=== PATIENT | female | born 1995 | race African-American/Black ===

== ENCOUNTER 2016-07-08 20:37 | Emergency (ER) | payer OTHER ==
[~2016-07-08] VITALS: Ht 170.2 cm; Wt 118.2 kg
[2016-07-08 20:40] VITALS: TEMP 36.7; Ht 170.2 cm; Wt 118.2 kg
--- NOTE | 2016-07-08 20:53 | EMERGENCY ROOM VISIT NOTE ---
ED Visit Note First contact with patient: 20:42 Chief Complaint: "Cut right index finger". History of Present Illness: This patient is a 21-year-old female who presents to the Emergency Department via private vehicle for evaluation of their right index finger laceration. Patient sustained the laceration while working earlier today, 20 minutes prior to arrival at the [facility]. Patient is a [employer] student. She notes that she was cleaning dishes in the sink and accidentally cut her right index finger on a knife that was in the water. She denies any pain. They report a moderate amount of bleeding initially. They deny any numbness or tingling into the distal extremity. They report no decreased range of motion of the affected digit. Patient's Tetanus status is currently up -to-date. Medications: As noted below Allergies: No known allergies PMH: No pertinent past medical history SHx: Patient is a [employer] student and currently employed on campus in the [employer]. ROS: All pertinent positive and negative review of systems are appropriately documented in the History of Present Illness. Physical Exam: VITAL SIGNS - Vital signs and nursing notes were reviewed. GENERAL -21-year-old female appearing her stated age who is in no acute distress. Communicates well with provider and answers questions appropriately. SKIN - There is a 1.5 cm long laceration in the shape of the C noted on the medial aspect of the distal right second digit. The edges gape apart with traction. No foreign bodies appreciated. Upon further examination there are no deep structures including vessel, tendon, or bony structures appreciated. This appears to be a flap/fillet -like laceration that will not require suturing but is best approximated with Dermabond. There is no active bleeding noted. MUSCULOSKELETAL - Laceration as described above. +5/5 strength appreciated of the affected digit. Full range of motion of the affected digit. NEUROLOGIC - Spinothalamic tract was found to be intact with ability to discriminate sharp versus dull sensation. No sensory defects of the dorsal column were appreciated utilizing light touch for evaluation. VASCULAR - Capillary refill was brisk. ED Course: Patient was seen and evaluated by myself. Risks and benefits of performing primary wound closure versus no repair were discussed with the patient who verbalizes understanding. Verbal consent was obtained prior to performing the procedure. patient did not want any localized anesthetic. The wound was cleansed and prepped in the typical sterile fashion utilizing normal saline and Betadine. The wound was sterilely draped. Once proper anesthetization was established, the wound was further examined and demonstrated a superficial laceration The wound was copiously irrigated with normal saline and Betadine. The wound was closed Dermabond with the wound edges being well approximated. Patient tolerated the procedure well. No complications were met. A metal splint was applied to the finger for comfort. Patient educated on worrisome symptoms for return visit to the Emergency Department. She is to follow up with workman's compensation regarding today's visit. Patient discharged to home in good condition. In the evaluation and treatment of this patient the following differential diagnoses were entertained: Laceration, among others. Current/Historical Medications Scheduled Control Pills ( Control Pills), 1 TAB PO DAILY Methylphenidate Hcl (Concerta), 72 MG PO QAM Allergies Coded Allergies: No Known Allergies (Unverified , 07/08/16) Vital Signs Date Time Temp Pulse Resp B/P Pulse Ox O2 Delivery O2 Flow Rate FiO2 07/08/16 22:06 85 18 145/93 99 07/08/16 20:40 36.7 82 18 160/105 99 Room Air Departure Information Impression Primary Impression: Laceration Dispostion Home / Self-Care Condition GOOD Patient Instructions My [facility] Additional Instructions Discharge Instructions: You have received Dermabond glue on your finger. Please wear the splint for comfort until the glue dissolves. Please keep the wound dry for the next week. Please do not submerge your hand in water. Please follow-up with your approved Workmen's Compensation individuals for further evaluation and management. Look for signs of infection of the wound including: increased pain, swelling, foul discharge, streaking, or increased temperature. If any of these are noticed you should return to the Emergency Department for further assessment and treatment. As with any laceration you may have received nerve damage to the surrounding tissues. This damage may or may not be permanent. You should keep the area covered with sunscreen for the first 6 months to 1 year when at risk for exposure to help minimize scarring. You can also use scar reducing creams or Vitamin E oil to help minimize scarring. For pain control, you can use the following [id number]-yozszls medicines (if >12 yo): - Regular strength (325mg/tab) Tylenol (acetaminophen) 2 tabs every 4-6 hours as needed. Do not exceed 12 tablets in a 24 hour period. Avoid taking more than 4 grams (4000 mg) of Tylenol per day. This includes any other sources of acetaminophen you may take on a regular basis. - Regular strength (200 mg/tab) Advil (ibuprofen) 1-2 tabs every 4-6 hours as needed. Do not exceed a dose of 3200 mg per day. Return to the emergency department if your symptoms worsen despite treatment course outlined above. Please return to emergency department with any new/concerning symptoms.
[2016-07-08] MEDS ORDERED: BCPILLS PO (20:54)
[2016-07-08] MEDS ORDERED: CNC/36 PO (20:54)
[2016-07-08 22:06] VITALS: BP 145/93; PULSE 85; O2SAT 99
== END 2016-07-08 22:07 | disposition home or self-care (01) ==
LOC: C.EDB 20:38 → C.EDD 22:07
DX: S61.210A Laceration without foreign body of right index finger without damage to nail, initial encounter (principal); W26.0XXA Contact with knife, initial encounter; Y99.0 Civilian activity done for income or pay; Y93.G1 Activity, food preparation and clean up